=== PATIENT | male | born 1955 | race African-American/Black ===

== ENCOUNTER 2017-09-15 10:34 | Inpatient (IN) | payer OTHER ==
[~2017-09-15] VITALS: Ht 190.5 cm; Wt 61.5 kg
--- NOTE | ~2017-09-15 | EKG ---
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: Kathy SOMERS : 1955 Requested By: Saravanan Victor Order Number: [id number] MD: Demetri Sweeney Measurements Intervals [place] Rate: 89 P: 87 MA: 158 QRS: 68 QRSD: 132 T: 70 QT: 405 QTc: 493 Interpretive Statements Sinus rhythm Nonspecific ST segment abnormality No previous ECG available for comparison Electronically Signed On 09-16-2017 8:39:53 PERSONAL LINES UNDERWRITER by Demetri Sweeney [email or web address] <ELECTRONICALLY SIGNED> By: Demetri Sweeney MD, [facility] 09/16/17 0839 [id number] Demetri Sweeney MD, FACC /EPI
--- NOTE | ~2017-09-15 | D ---
[facility] [place] [address] DISCHARGE SUMMARY Name: FABIOLA NEGRETE Room #: 443-P [facility] IN M.R.#: [id number] Admission: 09/15/17 Attend Phys: Stepan Kauffman MD Discharge: 09/17/17 Date of : 59 Report #: [id number] THIS REPORT FOR: //name// CC: Stepan Kauffman DATE OF SERVICE: 09/17/2017 FINAL DIAGNOSES: 1. Acute liver failure. 2. End-stage liver disease. 3. Pancreatic cancer. 4. Acute renal failure. 5. Anemia of chronic disease. HOSPITAL COURSE: The patient was admitted from the [facility] with altered mental status. He was found to have acute liver failure with transaminase levels up to the 7000s and acute renal failure with a creatinine in the mid 3-1/2 and severe anemia, hemoglobin of 2. He does have a history of pancreatic cancer and [facility] been on hospice at the [facility]. He was treated with DNR status and palliative care. He remained lethargic during the course of his stay, he had no interval complications. Social work was involved, and unfortunately, inpatient hospice facilities were not able to meet his needs. Therefore, the plan was to return to the nursing [place]. PHYSICAL EXAMINATION: GENERAL: On the day of discharge, he was somnolent in bed. VITAL SIGNS: Blood pressure was in the 100s systolic. He was in no distress. LUNGS: Clear with weak effort. HEART: Regular. ABDOMEN: Soft with a firm palpable mass, liver edge in the right mid abdomen. DISPOSITION: He is returning to [facility] with hospice care, do not resuscitate status and a terminal diagnosis as noted above. Diet as tolerated. Only medicine will be morphine sublingual as needed for pain. <ELECTRONICALLY SIGNED> By: Stepan Kauffman MD 09/18/17 1432 [id number] Stepan Kauffman MD /nt
--- NOTE | ~2017-09-15 | H ---
[facility] [place] [address] HISTORY AND PHYSICAL Name: FABIOLA NEGRETE Room #: 443-P ADM IN M.R.#: [id number] Admission: 09/15/17 Attend Phys: Stepan Kauffman MD Discharge: Date of : 59 Report #: [id number] THIS REPORT FOR: //name// CC: Stepan Kauffman DATE OF SERVICE: 09/15/2017 CHIEF COMPLAINT: Altered mental status. HISTORY OF PRESENT ILLNESS: The patient is a 62-year-old gentleman from [facility] sent to the Emergency Room with altered mental status. I was called early this morning by the nursing staff stating that they were concerned that he was trying to inject something into his arm. He does have a history of substance abuse in the past and there have been reports that he has tried similar incidents at the nursing facility previously. On other occasions, police and EMS have declined to intervene and when he had refused to go to the ER, he was just left in place. He was admitted to the [facility] in December of 2016 with diagnosis of pancreatic cancer but was terminal when he was admitted to hospice care at that time. There were no followup or care plans from the [place]. After about a month or two as he was not complying with hospice standards, they discharged him. Generally, he has been reasonably stable at the nursing center since. There has been some concern with alcohol or drug abuse and he does smoke, but generally his level of activity is up in the wheelchair, pushing himself around and is generally pleasant. However, today he was more obtunded and eventually EMS brought him to the ER. There, he has been found to have acute liver and renal failure and severe hypoglycemia along with severe anemia. PAST MEDICAL HISTORY: Pancreatic cancer, liver disease, history of alcohol and substance abuse. PAST SURGICAL HISTORY: Unknown. FAMILY HISTORY: Unknown. SOCIAL HISTORY: As above. ALLERGIES: Unknown. MEDICATIONS: Rifaximin, sodium bicarbonate, Tylenol, Zofran, hydrocortisone. REVIEW OF SYSTEMS: He is unable to give review. PHYSICAL EXAMINATION: VITAL SIGNS: Pulse 82, respirations 20, blood pressure 108/43, pulse ox 100% on nonrebreather mask. GENERAL: He is lethargic. He does open his eyes to his name, nods yes or no. [address] [address] HISTORY AND PHYSICAL Name: FABIOLA NEGRETE Room #: 443-P [facility] IN M.R.#: [id number] Admission: 09/15/17 Attend Phys: Stepan Kauffman MD Discharge: Date of : 59 Report #: [id number] HEAD AND NECK: Show cachexia. LUNGS: Clear anteriorly. HEART: Regular. ABDOMEN: Firm, protuberant. There feels to be a liver edge or firm mass in the right upper quadrant colostomy. EXTREMITIES: 1+ edema. NEUROLOGIC: He recognized me as his doctor but not by name. He moves all extremities. LABORATORY DATA: A pH of 7.23, lactate of 15, white count of 23, hemoglobin 2.5, creatinine 3.6, potassium 6.2. AST 7255, ALT 1474, alkaline phosphatase 481. Serum alcohol was negative. CT head and chest x-ray were fairly unremarkable. ASSESSMENT: 1. Acute liver failure. 2. Acute renal failure. 3. Hyperkalemia. 4. Anemia of chronic disease. 5. Pancreatic cancer. 6. Severe protein-calorie malnutrition, albumin 1.4. PLAN: He has do not resuscitate status from the long-term and that will be continued here. This is a terminal situation. There is no hope of intervention to recover. He is not a candidate for invasive treatment of his kidney failure nor is he a candidate for any treatment of his liver failure. Hospice care has been recommended. I explained the situation to the patient at the bedside. He nodded in approval and understanding of the care plan. Again, this is a terminal situation. It is consistent with the [facility] . <ELECTRONICALLY SIGNED> By: Stepan Kauffman MD 09/16/17 1340 [id number] Stepan Kauffman MD /nt
[2017-09-15 10:35] VITALS: BP 108/43
[2017-09-15] MEDS ORDERED: LOPERAMIDE 2 MG2 M1 PO (11:25)
[2017-09-15] MEDS ORDERED: XIFAXAN550 M1 PO (11:25)
[2017-09-15] MEDS ORDERED: TYLENOL325 MG PO (11:26)
[2017-09-15] MEDS ORDERED: SODIUM BICARBO650 M3 PO (11:26)
[2017-09-15] MEDS ORDERED: ZOFRAN ODT4 MG PO (11:27)
[2017-09-15] MEDS ORDERED: HYDROCORTISONE PO ×2 (11:29)
[2017-09-15 13:16] LABS: MCH 18.8 pg (26.0-34.0); MCHC 27.9 g/dL (28.0-37.0); MCV 67.3 fL (80.0-100.0); PLATELET COUNT 408 thou/uL (150-400); RBC 1.33 mil/uL (4.50-6.00); RDW 27.7 % (10.5-14.5); WBC 23.9 thou/uL (4.0-11.0)
[2017-09-15 13:19] LABS: HEMATOCRIT 8.9 % (42.0-52.0); HEMOGLOBIN 2.5 gm/dL (14.0-18.0)
[2017-09-15 13:24] LABS: CREATININE 3.6 mg/dL (0.7-1.3)
[2017-09-15 13:27] LABS: POTASSIUM 6.2 mmol/L (3.5-5.1)
[2017-09-15 13:35] LABS: ALBUMIN 1.4 g/dL (3.4-5.0); DIRECT BILIRUBIN 0.7 mg/dL (<0.1-0.3); TOTAL BILIRUBIN 1.1 mg/dL (<0.1-1.0); TOTAL PROTEIN 5.9 g/dL (6.4-8.2)
[2017-09-15 13:44] LABS: ANISOCYTOSIS 2+; HYPOCHROMASIA 3+; NUCLEATED RBCS 7 /100WBC
[2017-09-15 13:45] LABS: MICROCYTES 1+
[2017-09-15 14:01] LABS: BE(vivo) -13.4 mmol/L (-2 to +3); HCO3 12.8 mmol/L (22.0-26.0); PCO2 31.5 mmHg (35.0-45.0); sO2 31.6 % (92.0-98.0)
[2017-09-15 14:02] LABS: PO2 22.9 mmHg (80.0-100.0); pH 7.228 (7.360-7.450)
[2017-09-15 16:07] VITALS: BP 116/41; BP 91/30
[2017-09-15 17:12] VITALS: BP 111/42; BP 92/66
[2017-09-15 18:09] VITALS: BP 108/43
[2017-09-15 19:26] VITALS: BP 111/86
[2017-09-16 00:55] VITALS: BP 110/45
[2017-09-16 04:01] VITALS: BP 99/44
[2017-09-16 08:00] VITALS: BP 93/43
[2017-09-16 16:00] VITALS: BP 96/42
[2017-09-17] MEDS ORDERED: MSL20MG/ML PO (10:14)
== END 2017-09-17 13:15 | DRG 441 ==
LOC: ER 10:34 → EROBS 15:24 → 4S 15:24
PROVIDERS: Emergency Medicine; Internal Medicine
PROC: 30233N1 Transfusion of Nonautologous Red Blood Cells into Peripheral Vein, Percutaneous Approach (ICD-10-PCS; principal; 2017-09-15)
PROC: 02HV33Z Insertion of Infusion Device into Superior Vena Cava, Percutaneous Approach (ICD-10-PCS; principal; 2017-09-15)
DX: K72.00 Acute and subacute hepatic failure without coma (principal); E43 Unspecified severe protein-calorie malnutrition; N17.9 Acute kidney failure, unspecified; K92.2 Gastrointestinal hemorrhage, unspecified; Z68.1 Body mass index [BMI] 19.9 or less, adult; D63.8 Anemia in other chronic diseases classified elsewhere; E87.5 Hyperkalemia; Z85.07 Personal history of malignant neoplasm of pancreas
CPT/HCPCS: 10195